=== PATIENT | male | born 2005 | race African-American/Black ===

== ENCOUNTER 2023-10-28 22:17 | Emergency (ER) | payer SELFPAY ==
[~2023-10-28] VITALS: Ht 177.8 cm; Wt 73.0 kg
[2023-10-28 22:20] VITALS: BP 127/57; PULSE 81; RESP 18; TEMP 98.5; O2SAT 100
[2023-10-28] MEDS ORDERED: SODIUM CHLORIDE 0.9% 1,000 ML IV ONE (22:30)
[2023-10-28 23:14] LABS: BASOPHILS % 0.9 % (0.0-2.0); EOSINOPHILS % 4.7 % (0.0-5.0); HEMATOCRIT. 27.1 % (42.0-52.0); MEAN CORPUSCULAR HEMOGLOBIN 26.6 pg (28.0-32.0); MEAN CORPUSCULAR VOLUME 80.4 fL (80.0-94.0); MEAN PLATELET VOLUME 7.4 fl (7.4-10.4); NEUTROPHILS % 70.4 % (40.0-76.0); PLATELET 473 x1000/uL (130-400); RED BLOOD CELL COUNT 3.37 mill/uL (4.7-6.1); RED CELL DISTRIBUTION WIDTH 13.5 % (11.6-14.6); WHITE BLOOD COUNT 9.2 x1000/uL (4.5-11.0)
[2023-10-28 23:27] LABS: AMMONIA < 10 uMol/L (<32)
[2023-10-28 23:28] LABS: ACETAMINOPHEN < 2 ug/mL (10-30); ALANINE AMINOTRANSFERASE 9 IU/L (10-49); ALBUMIN 3.6 g/dL (3.2-4.8); ASPARTATE AMINOTRANSFERASE 17 IU/L (<34); BILIRUBIN TOTAL 0.4 mg/dL (0.1-1.0); CALCIUM 8.6 mg/dL (8.7-10.4); CARBON DIOXIDE 28 mEq/L (21-32); CHLORIDE 104 mEq/L (98-107); CREATINE KINASE 192 IU/L (46-171); CREATININE 0.5 mg/dL (0.6-1.3); GLUCOSE 119 mg/dL (70-105); POTASSIUM 3.3 mEq/L (3.5-5.1); PROTEIN TOTAL 7.8 g/dL (6.0-8.3); SODIUM 138 mEq/L (136-145); UREA NITROGEN BLOOD 15 mg/dL (9-23)
[2023-10-28 23:29] LABS: ETHANOL BLOOD < 10 mg/dL (<10)
== END 2023-10-29 08:20 | disposition home or self-care (01) ==
LOC: ER 22:17
DX: T65.91XA Toxic effect of unspecified substance, accidental (unintentional), initial encounter (principal); R41.82 Altered mental status, unspecified; Y92.89 Other specified places as the place of occurrence of the external cause
CPT/HCPCS: 80053; 80307; 80329; 80320; 82140; 82550; 82962; 83605; 85025; 36415; 99284; 70450; J7030; G0480

== ENCOUNTER 2025-04-27 11:51 | Emergency (ER) | payer MEDICAID ==
[~2025-04-27] VITALS: Ht 182.9 cm; Wt 81.0 kg
[2025-04-27 11:57] VITALS: O2SAT 96
[2025-04-27] MEDS ORDERED: AMOX-494 MT (13:29)
[2025-04-27] MEDS ORDERED: ACET-2708 MT (13:29)
[2025-04-27 14:02] VITALS: BP 164/64; PULSE 65; RESP 18; TEMP 37; O2SAT 100
== END 2025-04-27 14:04 | disposition home or self-care (01) ==
LOC: ER 12:36
DX: H66.93 Otitis media, unspecified, bilateral (principal); J45.909 Unspecified asthma, uncomplicated
CPT/HCPCS: 99283